=== PATIENT | female | born 1990 | race African-American/Black ===

== ENCOUNTER 2017-08-25 08:34 | Emergency (ER) | payer OTHER ==
[~2017-08-25] VITALS: Ht 142.2 cm; Wt 42.4 kg
[2017-08-25 08:43] VITALS: Ht 142.2 cm; Wt 42.4 kg
[2017-08-25 10:10] VITALS: BP 122/60
== END 2017-08-25 10:10 | disposition home or self-care (01) ==
LOC: ED 08:34
DX: S05.12XA Contusion of eyeball and orbital tissues, left eye, initial encounter (principal); S09.90XA Unspecified injury of head, initial encounter; W22.8XXA Striking against or struck by other objects, initial encounter; Y93.89 Activity, other specified; Y92.89 Other specified places as the place of occurrence of the external cause; Y99.8 Other external cause status

== ENCOUNTER 2017-10-07 10:41 | Emergency (ER) | payer OTHER ==
[2017-10-07 11:22] LABS: BASOPHIL % 0.9 % (0-2); PLATELET COUNT 333 x10^3mcL (130-400)
[2017-10-07 11:26] LABS: microscopic required? YES; urine erythrocyte TRACE (NEGATIVE)
[2017-10-07 11:29] LABS: RED CELL DISTRIBUTION WIDTH 15.5 % (11.5-14.5)
[2017-10-07 13:02] VITALS: BP 108/66
== END 2017-10-07 13:02 | disposition home or self-care (01) ==
LOC: ED 10:41
PROVIDERS: Emergency Medicine
DX: O23.591 Infection of other part of genital tract in pregnancy, first trimester (principal); N76.0 Acute vaginitis; Z3A.01 Less than 8 weeks gestation of pregnancy
CPT/HCPCS: 36415; 87491; 87591; J0696

== ENCOUNTER 2017-10-10 14:09 | Emergency (ER) | payer OTHER ==
[~2017-10-10] VITALS: Ht 142.2 cm; Wt 42.6 kg
[2017-10-10 14:29] VITALS: Ht 142.2 cm; Wt 42.6 kg
[2017-10-10 15:35] LABS: BASOPHIL % 1.2 % (0-2); PLATELET COUNT 364 x10^3mcL (130-400)
[2017-10-10 15:42] LABS: RED CELL DISTRIBUTION WIDTH 15.4 % (11.5-14.5)
[2017-10-10 16:54] VITALS: BP 110/76
== END 2017-10-10 16:54 | disposition home or self-care (01) ==
LOC: ED 14:09
PROVIDERS: Specialist
DX: O20.0 Threatened abortion (principal); Z3A.01 Less than 8 weeks gestation of pregnancy
CPT/HCPCS: 36415; J0780; Q0164

== ENCOUNTER 2017-10-23 18:40 | Emergency (ER) | payer OTHER ==
[~2017-10-23] VITALS: Ht 152.4 cm; Wt 39.9 kg
[2017-10-23 18:46] VITALS: Ht 152.4 cm; Wt 39.9 kg
[2017-10-23 19:29] LABS: BASOPHIL % 0.2 % (0-2); PLATELET COUNT 359 x10^3mcL (130-400)
[2017-10-23 19:30] LABS: RED CELL DISTRIBUTION WIDTH 15.2 % (11.5-14.5)
[2017-10-23 19:39] LABS: CALCIUM 9.8 mg/dL (8.5-10.1); CARBON DIOXIDE 21.9 mmol/L (21-32); CHLORIDE SERUM 102 mmol/L (98-107); CREATININE SERUM 0.6 mg/dL (0.6-1.0); GFR1 > 60 mL/min; GLUCOSE SERUM 87 mg/dL (74-106); POTASSIUM SERUM 3.5 mmol/L (3.5-5.1); SODIUM SERUM 136 mmol/L (136-145)
[2017-10-23 19:44] LABS: ALBUMIN 3.8 g/dL (3.4-5.0); ALKALINE PHOSPHATASE 61 U/L (46-116); ALT/SGPT 36 U/L (14-59); AST/SGOT 22 U/L (15-37); BILIRUBIN TOTAL 0.5 mg/dL (0.20-1.00); LIPASE 128 IU/L (73-393); TOTAL PROTEIN, SERUM 8.9 g/dL (6.4-8.2)
[2017-10-23 20:51] VITALS: BP 122/62
== END 2017-10-23 20:51 | disposition home or self-care (01) ==
LOC: ED 18:40
PROVIDERS: Emergency Medicine
DX: O21.0 Mild hyperemesis gravidarum (principal); Z3A.08 8 weeks gestation of pregnancy
CPT/HCPCS: J2405; J7030